=== PATIENT | female | born 1950 | race Caucasian/White ===

== ENCOUNTER 2018-03-16 23:20 | Emergency (ER) | payer MEDICARE, OTHER ==
[~2018-03-16 23:20] MED LIST: ATEN-1 PO; ATEN100T93 PO; BUPR-126 PO; CIT20 PO; CITA-157 PO; DOXY-179 PO; DYA PO; EST3 PO; ESTR0.62 PO; GAB100 PO; GABA-547 PO; GABA-549 PO; HYDR-2966 PO; LACTAID9000 UNIT PO; LEVO-3 PO; LEVO75TA68 PO; LOR5/325 PO; OMEP-125 PO; OMEP-218 PO; ONDA4TAB PO; POTA-28 PO; PRE20 PO; SIMV-42 PO; SIMV-54 PO; VITAMIN E; [UNRECOGNIZED DRUG - CODE] PO
--- NOTE | 2018-03-16 23:22 | ER Report ---
History and Physical Time Seen By MD: 23:21 HPI/ROS CHIEF COMPLAINT: Palpitations, shortness breath HISTORY OF PRESENT ILLNESS: Patient is a 58-year-old female here with complaints of palpitations, shortness of breath. Patient has a history of mitral valve prolapse, anxiety. She recently increased her dose of thyroid medication approximately one week ago and reports having tremors, diarrhea, palpitations starting today. Patient is afebrile, hemodynamically stable at time of evaluation. Patient reports that she started feeling flushed, having palpitations approximately 2100 tonight prompting her to come in for evaluation. Patient denies chest pain or shortness of breath however had persistent palpitations since time of onset. Patient is afebrile, hemodynamically stable at time of evaluation. REVIEW OF SYSTEMS: Constitutional: No fever, no chills. Eyes: No discharge. ENT: No sore throat. Cardiovascular: No chest pain, + palpitations. Respiratory: No cough, no shortness of breath. Gastrointestinal: No abdominal pain, no vomiting. Genitourinary: No hematuria. Musculoskeletal: No back pain. Skin: No rashes. Neurological: No headache, + lightheadedness Allergies: Coded Allergies: wool (Verified Allergy, Intermediate, 03/16/18) Penicillins (Verified Allergy, Mild, 03/16/18) [place] Needle Oil (Verified Allergy, Mild, 03/16/18) Sulfa (Sulfonamide Antibiotics) (Verified Allergy, Mild, 03/16/18) iodine (Verified Allergy, Mild, 03/16/18) pseudoephedrine (Verified Allergy, Mild, 03/16/18) animal dander (Verified Allergy, Unknown, 03/16/18) egg (Verified Allergy, Unknown, 03/16/18) Uncoded Allergies: ARTHRIMYCIN (Allergy, Mild, 08/23/09) LACTOSE INTOLERANCE (Allergy, Mild, 08/23/09) MYCINS (Allergy, Mild, 08/23/09) Home Meds Reported Medications Levothyroxine Sodium (SYNTHROID) 112 Mcg Tablet, 112 MCG PO QDAY, TAB 03/16/18 Lactase (Lactaid) 3,000 Unit Tablet, 1 TAB PO TID 09/20/16 Omeprazole (OMEPRAZOLE) 20 Mg Capsule.dr, 1 CAP PO QDAY, CAP 09/20/16 Bupropion Hcl (WELLBUTRIN SR) 150 Mg Tablet.er, 150 MG PO QDAY, TAB 09/20/16 Gabapentin (GABAPENTIN) 300 Mg Capsule, 300 MG PO QHS, CAPSULE 09/20/16 Simvastatin (SIMVASTATIN) 40 Mg Tablet, 40 MG PO HS, TAB 09/20/16 Citalopram Hydrobromide (CELEXA) 40 Mg Tablet, 40 MG PO QDAY, #5 TAB 09/20/16 Gabapentin (GABAPENTIN) 100 Mg Capsule, 200 MG PO QDAY, CAPSULE 09/20/16 Triamterene/Hctz (Dyazide 37.5-25 Mg) 1 Ea Cap, 1 TAB PO, 0 Refills 08/23/09 Atenolol (Atenolol) 50 Mg Tablet, 50 MG PO BID, 0 Refills 08/23/09 Discontinued Reported Medications Potassium Chloride (POTASSIUM CHLORIDE) 10 Meq Tablet.er, 10 MEQ PO QDAY 09/20/16 Levothyroxine Sodium (LEVOTHYROXINE SODIUM) 100 Mcg Tablet, 100 MCG PO QDAY, TAB 09/20/16 Hx Smoking: No Smoking Status: Never Smoker Exposure to Second Hand Smoke?: Yes ( CHILD ) Hx Substance Use Disorder: No Hx Alcohol Use: No Constitutional Vital Sign - Last 24 Hours 03/16/18 03/16/18 03/16/18 03/16/18 23:20 23:23 23:24 23:25 Temp 98.6 Pulse ??? 75 Resp 24 B/P (MAP) 195/143 (160) 171/89 171/89 (116) Pulse Ox 98 O2 Delivery Room Air 03/16/18 03/16/18 03/16/18 03/17/18 23:30 23:35 23:50 00:02 Pulse 69 ??? Resp 11 19 B/P (MAP) 164/84 (110) 139/83 (101) Pulse Ox 98 92 03/17/18 03/17/18 03/17/18 03/17/18 00:05 00:30 00:35 00:40 Pulse 63 59 60 Resp 7 10 9 B/P (MAP) 125/74 (91) Pulse Ox 92 95 94 03/17/18 03/17/18 03/17/18 03/17/18 00:45 01:15 01:20 01:30 Pulse 60 65 65 64 Resp 14 26 29 8 B/P (MAP) ???/??? (5485) Pulse Ox 94 03/17/18 03/17/18 03/17/18 01:35 01:45 01:50 Pulse 63 61 62 Resp 35 6 10 Intake and Output 03/16/18 03/16/18 03/17/18 15:00 23:00 07:00 Intake Total 1000 ml Balance 1000 ml Physical Exam General Appearance: The patient is alert, has no immediate need for airway protection and no signs of toxicity. Anxious appearing Eyes: Pupils equal and round no pallor or injection. ENT, Mouth: Mucous membranes are moist. Respiratory: There are no retractions, lungs are clear to auscultation. Cardiovascular: Regular rate and rhythm. Gastrointestinal: Abdomen is soft and non tender, no masses, bowel sounds normal. Neurological: No focal neurological deficits Skin: Warm and dry, no rashes. Musculoskeletal: Neck is supple non tender. Extremities are nontender, nonswollen and have full range of motion. DIFFERENTIAL DIAGNOSIS: After history and physical exam differential diagnosis was considered for dehydration, arrhythmia, electrolyte abnormality, cardiac ischemia, infection Medical Decision Making Data Points Result Diagram: 03/16/18 2344 03/16/18 2344 Laboratory Hematology Test 03/16/18 23:44 03/17/18 01:26 Red Blood Count 4.67 M/uL (4.17-5.56) Mean Corpuscular Volume 87.9 fL (80.0-96.0) Mean Corpuscular Hemoglobin 29.7 pg (26.0-33.0) Mean Corpuscular Hemoglobin Concent 33.8 g/dL (32.0-36.0) Red Cell Distribution Width 14.0 % (11.5-14.5) Mean Platelet Volume 8.8 fL (7.2-11.1) Neutrophils (%) (Auto) 53.6 % (39.4-72.5) Lymphocytes (%) (Auto) 32.8 % (17.6-49.6) Monocytes (%) (Auto) 9.3 % (4.1-12.4) Eosinophils (%) (Auto) 3.6 % (0.4-6.7) Basophils (%) (Auto) 0.7 % (0.3-1.4) Nucleated RBC Relative Count (auto) 0.0 /100WBC Neutrophils # (Auto) 3.7 K/uL (2.0-7.4) Lymphocytes # (Auto) 2.3 K/uL (1.3-3.6) Monocytes # (Auto) 0.7 K/uL (0.3-1.0) Eosinophils # (Auto) 0.3 K/uL (0.0-0.5) Basophils # (Auto) 0.0 K/uL (0.0-0.1) Nucleated RBC Absolute Count (auto) 0.00 K/uL Prothrombin Time 12.0 seconds (12.0-14.4) Prothromb Time International Ratio 0.89 Activated Partial Thromboplast Time 25 seconds (23-35) Sodium Level 138 mmol/L (137-145) Potassium Level 3.5 mmol/L (3.5-5.0) Chloride Level 102 mmol/L (98-107) Carbon Dioxide Level 26 mmol/L (22-31) Blood Urea Nitrogen 20 mg/dl (7-18) Creatinine 1.20 mg/dl (0.52-1.04) Glomerular Filtration Rate Calc 44.5 Random Glucose 106 mg/dl (75-110) Calcium Level 9.2 mg/dl (8.4-10.2) Total Bilirubin 0.2 mg/dl (0.2-1.3) Aspartate Amino Transf (AST/SGOT) 21 U/L (0-35) Alanine Aminotransferase (ALT/SGPT) 26 U/L (0-56) Alkaline Phosphatase 65 U/L (0-126) B-Type Natriuretic Peptide 82 pg/ml (0-100) Total Protein 6.0 g/dl (6.3-8.2) Albumin 3.6 g/dl (3.5-5.0) Troponin I < 0.012 ng/ml Chemistry Test 03/16/18 23:44 03/17/18 01:26 White Blood Count 7.0 k/uL (4.5-11.0) Red Blood Count 4.67 M/uL (4.17-5.56) Hemoglobin 13.9 g/dL (12.0-16.0) Hematocrit 41.1 % (34.0-47.0) Mean Corpuscular Volume 87.9 fL (80.0-96.0) Mean Corpuscular Hemoglobin 29.7 pg (26.0-33.0) Mean Corpuscular Hemoglobin Concent 33.8 g/dL (32.0-36.0) Red Cell Distribution Width 14.0 % (11.5-14.5) Platelet Count 260 K/uL (150-450) Mean Platelet Volume 8.8 fL (7.2-11.1) Neutrophils (%) (Auto) 53.6 % (39.4-72.5) Lymphocytes (%) (Auto) 32.8 % (17.6-49.6) Monocytes (%) (Auto) 9.3 % (4.1-12.4) Eosinophils (%) (Auto) 3.6 % (0.4-6.7) Basophils (%) (Auto) 0.7 % (0.3-1.4) Nucleated RBC Relative Count (auto) 0.0 /100WBC Neutrophils # (Auto) 3.7 K/uL (2.0-7.4) Lymphocytes # (Auto) 2.3 K/uL (1.3-3.6) Monocytes # (Auto) 0.7 K/uL (0.3-1.0) Eosinophils # (Auto) 0.3 K/uL (0.0-0.5) Basophils # (Auto) 0.0 K/uL (0.0-0.1) Nucleated RBC Absolute Count (auto) 0.00 K/uL Prothrombin Time 12.0 seconds (12.0-14.4) Prothromb Time International Ratio 0.89 Activated Partial Thromboplast Time 25 seconds (23-35) Glomerular Filtration Rate Calc 44.5 Calcium Level 9.2 mg/dl (8.4-10.2) Total Bilirubin 0.2 mg/dl (0.2-1.3) Aspartate Amino Transf (AST/SGOT) 21 U/L (0-35) Alanine Aminotransferase (ALT/SGPT) 26 U/L (0-56) Alkaline Phosphatase 65 U/L (0-126) B-Type Natriuretic Peptide 82 pg/ml (0-100) Total Protein 6.0 g/dl (6.3-8.2) Albumin 3.6 g/dl (3.5-5.0) Troponin I < 0.012 ng/ml Coagulation Test 03/16/18 23:44 Prothrombin Time 12.0 seconds Prothromb Time International Ratio 0.89 Activated Partial Thromboplast Time 25 seconds EKG/Imaging EKG Interpretation 12 lead EKG: Normal sinus rhythm, rate 70, QTC 488, no ischemic changes or arrhythmias or PVCs or PACs Rhythm: normal sinus rhythm [place]: normal QRS: normal ST segments: normal Imaging EXAMINATION: Chest radiographs 2 views HISTORY: Chest pain. COMPARISON: 09/11/2011. FINDINGS: PA and lateral views of the chest are submitted. Lines/tubes: None. Lungs/pleura: No focal consolidation or pleural effusion. Heart: Negative. Mediastinum: Moderate sized hiatal hernia. Bony structures/body wall: Negative. IMPRESSION: 1. No radiographic evidence of acute cardiopulmonary disease. 2. Moderate-sized hiatal hernia. ED Course/Re-evaluation Clinical Indication for ER IV: Hydration ED Course Patient is a 67-year-old female here with complaints of lightheadedness, flushed sensation starting approximately 2100. Patient had palpitations but denied chest pain, shortness breath, fevers or chills, abdominal pain, nausea, vomiting. Patient reports that she recently increased her dose of thyroid medication approximately one week prior. She has a history significant for mitral valve prolapse. Initial troponin was negative. Initial 12-lead EKG showed no acute arrhythmias or PVCs or PACs. Patient did have a mild bump in her creatinine which may be due to prerenal azotemia. Patient admits to taking 2 diuretics which may have caused transient dehydration. Chest x-ray showed no acute intrathoracic pathology. 2nd troponin was taken at 1:15 greater than 4 hours after time of onset to rule out cardiac ischemia which was negative. Patient was given a liter bolus of fluid. Patient was advised to follow-up with her PCP for further evaluation and care. Decision to Disposition Date: Mar 17, 2018 Decision to Disposition Time: 02:12 Depart Departure Latest Vital Signs Vital Signs Date Time Temp Pulse Resp B/P (MAP) Pulse Ox O2 Delivery O2 Flow Rate FiO2 03/17/18 01:50 62 10 03/17/18 01:30 ???/??? (1665) 03/17/18 00:45 94 03/16/18 23:24 98.6 Room Air Impression: Primary Impression: Palpitations Condition: Improved Disposition: HOME OR SELF-CARE Referrals: FABIENNE LEE DO (PCP) Patient Instructions: Palpitations (ED) Additional Instructions: 2 sets of cardiac enzymes were found to be negative today. Your chest x-ray showed no acute findings. Please follow-up with your family doctor for results of your thyroid function study. Please follow-up with her family doctor in the next 3 days for follow-up care. Your EKG today showed no signs of arrhythmias. Or abnormal heart beats. Please drink plenty of water as your kidney function was mildly diminished possibly due to dehydration on diuretic pills. Please return promptly if you develop worsening symptoms, fevers, difficulty breathing, abdominal pain, nausea, vomiting. LIVE OKEEFE DO Mar 16, 2018 23:21
[2018-03-16] MEDS ORDERED: NS(*) 0.9% 1000 ML BAG 1,000 ML IV ONE (23:27)
[2018-03-16] MEDS ORDERED: ASPIRIN 81 MG CHEW PO ONE (23:30)
[2018-03-16] MEDS ORDERED: LEVO112T44 PO (23:32)
[2018-03-16 23:55] LABS: PLATELET COUNT, AUTOMATED 260 K/uL (150-450)
[2018-03-17 00:13] LABS: INR 0.89
--- NOTE | 2018-03-17 00:17 | RADIOLOGY IMAGING REPORT ---
FACILITY: [facility] PATIENT NAME: Tina Hsu : 1950 MR: [id number] V: [id number] EXAM DATE: ORDERING PHYSICIAN: LIVE OKEEFE TECHNOLOGIST: Location: [facility] Patient: Tina Hsu : 1950 Visit/Account:[id number] Date of Sevice: 03/16/2018 EXAMINATION: Chest radiographs 2 views HISTORY: Chest pain. COMPARISON: 09/11/2011. FINDINGS: PA and lateral views of the chest are submitted. Lines/tubes: None. Lungs/pleura: No focal consolidation or pleural effusion. Heart: Negative. Mediastinum: Moderate sized hiatal hernia. Bony structures/body wall: Negative. IMPRESSION: 1. No radiographic evidence of acute cardiopulmonary disease. 2. Moderate-sized hiatal hernia. Report Dictated By: Judi Hi MD at 03/17/2018 12:12 AM Report E-Signed By: Judi Hi MD at 03/17/2018 12:13 AM WSN:[id number]
--- NOTE | 2018-03-17 00:25 | EKG ---
FACILITY: [facility] PATIENT NAME: PATRICIA VALVERDE : [id number] MR: [id number] V: [id number] EXAM DATE: ORDERING PHYSICIAN: LIVE OKEEFE TECHNOLOGIST: ARTIE Test Reason : palpitations Blood Pressure : / mmHG Vent. Rate : 070 BPM Atrial Rate : 070 BPM P-R Int : 142 ms QRS Dur : 088 ms QT Int : 452 ms P-R-T Axes : 061 028 042 degrees QTc Int : 488 ms Normal sinus rhythm Flattened T waves in V2-3, III more prominent than previous ECG. When compared with ECG of 14-MAY-2017 21:38, No significant change was found Confirmed by BERTHA BERTRAND ([id number]) on 03/17/2018 12:53:02 AM Referred By: MALDONADO Confirmed By:BERTHA BERTRAND
== END 2018-03-17 02:14 | disposition home or self-care (01) ==
LOC: ER 23:58
DX: R00.2 Palpitations (principal)
CPT/HCPCS: 36415; 71046; 83880; 84443; 84484; 85025; 85610; 85730; 93005; 96360; 96361; 99284; J7030; 82040; 82247; 82310; 82374; 82435; 82565; 82947; 84075; 84132; 84155; 84295; 84450; 84460; 84520

== ENCOUNTER → 2018-04-06 | Outpatient (CLI) | payer MEDICARE, OTHER ==
[~2018-04-06] MED LIST changes: +LEVO112T44 PO
== END ==
LOC: US 07:21
PROVIDERS: ATTEND Family Medicine
DX: I34.0 Nonrheumatic mitral (valve) insufficiency (principal)
CPT/HCPCS: 93306

== ENCOUNTER → 2018-04-07 | Outpatient (CLI) | payer MEDICARE, OTHER ==
--- NOTE | 2018-04-10 18:56 | RT HOLTER TEST ---
FACILITY: [facility] PATIENT NAME: PATRICIA VALVERDE : [id number] MR: [id number] V: [id number] EXAM DATE: ORDERING PHYSICIAN: FABIENNE LEE TECHNOLOGIST: ZEB Hook-up date: 2018-04-07 09:20:00 Duration: 47:59:00 Test Indications: PALPITATONS Medications: OMEPRAZOLE LEVOTHYROXINE TRIAMTERENE HCTZ BUPROPION ATENELOL GABAPENTIN CITALOPRAM 543515 QRS complexes 1071 Ventricular ectopics which represent <1 % of total QRS comp. 101 Supraventricular ectopics which represent <1 % of total QRS comp. * Paced QRS complexes which represent % of total QRS comp. VENTRICULAR ECTOPY 1067 Isolated 21 Bigeminal Cycles 2 Couplets 0 Runs 0 Beats in Runs * Beats LONGEST at * BPM at :: -- * Beats FASTEST at * BPM at :: -- SUPRAVENTRICULAR ECTOPY 80 Isolated 2 Couplets 4 Runs 18 Beats in Runs 6 Beats LONGEST at 110 BPM at 23:58:08 2018-04-08 3 Beats FASTEST at 121 BPM at 09:52:45 2018-04-08 HEART RATES 50 MIN at 15:07:44 2018-04-07 65 AVG 100 MAX at 23:58:10 2018-04-08 LONGEST RR 1.528 secs at 00:31:25 2018-04-08 Channel 2 -12.800 mm MIN at 09:20:00 2018-04-07 -12.800 mm MAX at 09:20:00 2018-04-07 Channel 3 -12.800 mm MIN at 09:20:00 2018-04-07 -12.800 mm MAX at 09:20:00 2018-04-07 Sinus rhythym throughout study with periods of PAC and PVC. PAC do not appear to correlate to any events noted by patient. Occasionally occur in runs up to 5-6 beats. PVC are noted when patient recorded event but also occur without any notation in patient log. PVC are single peak seperated by at least one sinus beat. Confirmed by Hector Guzmán ([id number]) on 04/10/2018 6:56:07 PM Referred By: Overread By: Hector Donahue
== END ==
LOC: RESP 03:33
PROVIDERS: ATTEND Family Medicine
DX: R00.2 Palpitations (principal)
CPT/HCPCS: 93225; 93226

== ENCOUNTER → 2018-07-04 | Outpatient (CLI) | payer MEDICARE, OTHER | LOC: LAB 13:43 | PROVIDERS: ATTEND Family Medicine | DX: E87.6 Hypokalemia (principal) | CPT/HCPCS: 36415; 82310; 82374; 82435; 82565; 82947; 84132; 84295; 84520 ==